=== PATIENT | female | born 1940 | race Caucasian/White ===

== ENCOUNTER → 2016-08-14 | Outpatient (CLI) | payer OTHER, MEDICAID ==
[2016-03-03 13:33] VITALS: BP 148/78
--- NOTE | 2016-08-14 13:31 | RAD ---
HISTORY: Lumbosacral neuritis Study: Three views thoracic spine Comparison: 06/10/2012 Findings: There is osteopenia noted which reduces sensitivity to detect nondisplaced fractures. There is mild thoracic dextroscoliosis and significantly exaggerated kyphosis due to multiple chroni c compression fractures at approximately T12, T8, and T5 post vertebroplasty. There is also vertebra l body height loss at T9 and T10. The visualized lungs and soft tissues are unremarkable with dual-c hamber pacemaker in place. IVC filter and surgical changes are seen in the upper abdomen. IMPRESSION: 1. Diffuse osteopenia with multiple chronic compression fractures as described. Reported By:
--- NOTE | 2016-08-14 17:00 | RAD ---
HISTORY: Lumbosacral neuritis, low back pain Study: Complete lumbar spine series Comparison: 04/01/2012 Findings: There is mild levoscoliosis. There is osteopenia noted which reduces sensitivity to detect nondispla wes fractures. There are chronic compression fractures at L3 and T12 post vertebroplasty. The remain ing vertebral body heights are preserved. There is multilevel disc space narrowing and spondylosis most prominent at L2-L3 and L4-5. There are bilateral multilevel facet degenerative changes also pre sent.No evidence for acute fracture or subluxation. Multiple surgical clips are seen in the abdomen. There is an IVC filter at the level of L1-L2. There is a partially visualized right hip arthroplast y. IMPRESSION: 1. Diffuse osteopenia and multilevel degenerative changes as described. Chronic compression fracture s at T12 and L3 post vertebroplasty. No definite acute fracture is identified. 2. Postsurgical changes as described. Reported By:
== END ==
LOC: RAD 11:54
PROVIDERS: ATTEND Nurse Practitioner Family
DX: M54.6 Pain in thoracic spine (principal); M54.17 Radiculopathy, lumbosacral region
CPT/HCPCS: 72072; 72110

== ENCOUNTER → 2017-02-10 | Outpatient (CLI) | payer OTHER, MEDICAID ==
[2016-03-03 13:33] VITALS: BP 148/78
== END ==
LOC: LAB 17:42
PROVIDERS: ATTEND Specialist
DX: S80.12XD Contusion of left lower leg, subsequent encounter (principal); X58.XXXD Exposure to other specified factors, subsequent encounter
CPT/HCPCS: 87070; 87075; 87205

== ENCOUNTER → 2017-07-23 | Outpatient (CLI) | payer OTHER, MEDICAID ==
[2016-03-03 13:33] VITALS: BP 148/78
--- NOTE | 2017-07-23 13:26 | VAS ---
HISTORY: Bilateral lower extremity edema Study: Bilateral lower extremity venous Doppler Comparison: None Technique: Multiple grayscale sonographic images were obtained. Color duplex Doppler evaluation was p erformed. Findings: Bilaterally the common femoral veins, superficial femoral veins, and popliteal veins were patent demo nstrating no evidence for thrombus. IMPRESSION: Exam negative for deep venous thrombosis bilateral lower extremities Reported By:
== END ==
LOC: RAD 12:23
PROVIDERS: ATTEND Nurse Practitioner Family
DX: M79.662 Pain in left lower leg (principal); M79.661 Pain in right lower leg; R60.0 Localized edema; Z86.718 Personal history of other venous thrombosis and embolism
CPT/HCPCS: 93970